=== PATIENT | male | born 1970 | race Caucasian/White ===

== ENCOUNTER 2021-07-09 13:47 | Outpatient (CLI) | payer BC, SELFPAY ==
[2021-07-09 14:15] VITALS: BP 141/85; PULSE 85; RESP 16; TEMP 36.6; O2SAT 97; BMI 31.2
[2021-07-09 14:51] VITALS: BP 129/79; PULSE 72; RESP 18; TEMP 36.6; O2SAT 94
[2021-07-09 15:51] VITALS: BP 126/82; PULSE 77; RESP 14; TEMP 36.2; O2SAT 96
== END 2021-07-09 13:48 | disposition home or self-care (01) ==
LOC: OPS 13:50
PROVIDERS: PCP Family Medicine; Visit Provider Nurse Practitioner Family
DX: U07.1 COVID-19 (principal)
CPT/HCPCS: 96365

== ENCOUNTER → 2022-03-18 08:56 | Outpatient (BNVA) | payer BC, SELFPAY | PROVIDERS: PCP Family Medicine; Visit Provider Family Medicine | DX: Z00.00 Encounter for general adult medical examination without abnormal findings (principal); Z13.6 Encounter for screening for cardiovascular disorders; Z12.11 Encounter for screening for malignant neoplasm of colon | CPT/HCPCS: 80053; 80061 ==

== ENCOUNTER → 2022-04-23 08:33 | Outpatient (BNVA) | payer BC, SELFPAY | PROVIDERS: PCP Family Medicine; Visit Provider Family Medicine | DX: E29.1 Testicular hypofunction (principal) | CPT/HCPCS: 80076; 82670; 84153; 84403; 85025 ==

== ENCOUNTER → 2022-12-23 10:12 | Outpatient (BNVA) | payer BC, SELFPAY | PROVIDERS: PCP Family Medicine; Visit Provider Family Medicine | DX: E29.1 Testicular hypofunction (principal) | CPT/HCPCS: 80048; 82040; 84153; 84270; 84403; 85025 ==

== ENCOUNTER → 2023-11-08 14:01 | Outpatient (BNVA) | payer BC, SELFPAY | PROVIDERS: PCP Family Medicine; Visit Provider Family Medicine | DX: Z01.818 Encounter for other preprocedural examination (principal); R94.31 Abnormal electrocardiogram [ECG] [EKG] | CPT/HCPCS: 93005 ==

== ENCOUNTER 2023-11-30 12:17 | Outpatient (CLI) | payer BC, SELFPAY ==
--- NOTE | 2023-11-30 | ECG_ITS ---
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 Interpretive Statements NAME OF STUDY: TREADMILL STRESS TEST INDICATION: ST Depression on 12 lead ekg PROCEDURE: At the baseline, the patient's blood pressure was 156/84 with a heart rate of 80. The baseline electrocardiogram showed normal sinus rhythm with normal ST-Ts. Minimal left axis deviation.. The patient exercised for 12 minutes on a standard Rajiv protocol. Patient attained a maximum heart rate of 176 beats per minute(104% of the maximum predicted heart rate) with a blood pressure at the peak exercise of 129/44 mm Hg. The EKG at the peak exercise revealed no significant ST-T changes. Patient did not have any chest pain or any significant cardiac arrhythmias with the exercise During the recovery phase, there were no new changes. Blood pressure at the end of the recovery phase was 150/72 mm Hg with a heart rate of 111 per minute. CONCLUSION: 1. Normal EKG response to treadmill exercise 2. No exercise-induced chest pain or cardiac arrhythmia 3. GERD exercise tolerance, attained a maximum of 13.5 METs 4. As Significant drop in the systolic blood pressure with the peak exercise-seems asymptomatic. Electronically Signed On 12-04-2023 21:01:50 CDT by Sunny Vargas M.D. [email or web address]
[2023-11-30 12:19] VITALS: BMI 33.0
[2023-11-30 12:57] VITALS: BP 142/74; PULSE 107
== END 2023-11-30 12:18 | disposition home or self-care (01) ==
PROVIDERS: PCP Family Medicine; Visit Provider Family Medicine
DX: R94.31 Abnormal electrocardiogram [ECG] [EKG] (principal)
CPT/HCPCS: 93017

== ENCOUNTER → 2025-05-29 08:29 | Outpatient (BNVA) | payer OTHER, SELFPAY | PROVIDERS: PCP Family Medicine; Visit Provider Family Medicine | DX: E29.1 Testicular hypofunction (principal); I10 Essential (primary) hypertension | CPT/HCPCS: 80053; 80061; 85025 ==